=== PATIENT | female | born 1985 | race Caucasian/White ===

== ENCOUNTER 2017-10-19 06:55 | Emergency (ER) | payer OTHER, MEDICAID ==
[~2017-10-19] VITALS: Ht 167.6 cm; Wt 90.7 kg
[2017-10-19 08:14] LABS: URINE BILIRUBIN NEGATIVE (Negative); URINE BLOOD TRACE (Negative); URINE CLARITY CLEAR; URINE COLOR YELLOW; URINE GLUCOSE-RANDOM NEGATIVE (Negative); URINE KETONES NEGATIVE (Negative); URINE LEUKOCYTES-REFLEX NEGATIVE (Negative); URINE NITRITE-REFLEX NEGATIVE (Negative); URINE PROTEIN NEGATIVE (Negative); URINE SPECIFIC GRAVITY 1.025 (1.005-1.030); URINE UROBILINOGEN 0.2 E.U./dl (0.2-1.0)
[2017-10-19 08:22] LABS: AMP/METHAMP Negative (Negative); BARBITURATES Negative (Negative); BENZODIAZEPINES Negative (Negative); COCAINE Negative (Negative); METHADONE Negative (Negative); OPIATES POSITIVE (Negative); PCP Negative (Negative); THC POSITIVE (Negative)
[2017-10-19] MEDS ORDERED: PHENERGAN 25 MG25 MG PO (08:50)
[2017-10-19 08:57] VITALS: BP 114/68
== END 2017-10-19 09:03 | disposition home or self-care (01) ==
LOC: EDBD 06:55 → M.ERS 06:55
PROVIDERS: Emergency Medicine
DX: R10.9 Unspecified abdominal pain (principal); Z90.711 Acquired absence of uterus with remaining cervical stump; Z88.1 Allergy status to other antibiotic agents; Z88.8 Allergy status to other drugs, medicaments and biological substances

== ENCOUNTER 2018-06-21 07:15 | Inpatient (IN) | payer OTHER, MEDICAID ==
[~2018-06-21] VITALS: Ht 167.6 cm; Wt 133.4 kg
[~2018-06-21 07:15] MED LIST: PHENERGAN 25 MG25 MG PO
[2018-06-21] MEDS ORDERED: PROZAC20 MG PO (07:28)
[2018-06-21 07:37] LABS: URINE BILIRUBIN NEGATIVE (Negative); URINE BLOOD 1+ (Negative); URINE CLARITY CLEAR; URINE COLOR YELLOW; URINE GLUCOSE-RANDOM NEGATIVE (Negative); URINE KETONES NEGATIVE (Negative); URINE LEUKOCYTES-REFLEX NEGATIVE (Negative); URINE NITRITE-REFLEX NEGATIVE (Negative); URINE PROTEIN NEGATIVE (Negative); URINE SPECIFIC GRAVITY >= 1.030 (1.005-1.030); URINE UROBILINOGEN 0.2 E.U./dl (0.2-1.0)
[2018-06-21 07:44] LABS: BACTERIA-REFLEX 1-9 Few /HPF (None Seen); CASTS None Seen /LPF (None Seen); CRYSTALS None Seen /LPF (None Seen); MUCUS None Seen strn/LPF (None Seen); SQUAMOUS >10 Many /LPF (0-3); URINE RBC 3-10 Few /HPF (0-2); URINE WBC-REFLEX 0-5 Rare /HPF (0-5)
[2018-06-21 07:49] LABS: ABSOLUTE BASOPHILS 0.1 thou/uL (0.0-0.2); ABSOLUTE EOSINOPHILS 0.1 thou/uL (0.0-0.7); ABSOLUTE LYMPHOCYTES 2.8 thou/uL (0.8-5.3); ABSOLUTE MONOCYTES 0.6 thou/uL (0.0-1.2); ABSOLUTE NEUTROPHILS 10.1 thou/uL (1.6-8.1); BASOPHILS 0.9 %; EOSINOPHILS 0.4 %; HEMATOCRIT 41.6 % (37.0-47.0); LYMPHOCYTES 20.5 %; MCH 29.7 pg (26.0-34.0); MCHC 33.7 g/dL (28.0-37.0); MCV 88.2 fL (80.0-100.0); MONOCYTES 4.3 %; MPV 7.7 fl. (7.2-11.1); NUCLEATED RBCS 0 /100WBC; PLATELET COUNT* 396 thou/uL (150-400); POLYS 73.9 %; RBC 4.71 mil/uL (4.20-5.00); RDW-CV 13.2 % (10.5-14.5); WBC 13.7 thou/uL (4.0-11.0)
[2018-06-21 07:58] LABS: CALCIUM 8.9 mg/dL (8.5-10.1); CREATININE 0.7 mg/dL (0.6-1.3)
[2018-06-21 08:02] LABS: ALBUMIN 3.4 g/dL (3.4-5.0); POTASSIUM 4.1 mmol/L (3.5-5.1); TOTAL BILIRUBIN 0.4 mg/dL (<0.1-1.0); TOTAL PROTEIN 7.7 g/dL (6.4-8.2)
[2018-06-21] MEDS ORDERED: NORCO 5-325 TA1 EACH PO (11:42)
[2018-06-21] MEDS ORDERED: CIPROFLOXACIN500 M1 PO (11:42)
[2018-06-21] MEDS ORDERED: PHENERGAN 25 MG25 M1 PO (11:42)
[2018-06-21 14:05] VITALS: BP 111/71
[2018-06-21 15:35] LABS: AMP/METHAMP Negative (Negative); BARBITURATES Negative (Negative); BENZODIAZEPINES Negative (Negative); COCAINE Negative (Negative); METHADONE Negative (Negative); OPIATES Negative (Negative); PCP Negative (Negative); THC POSITIVE (Negative)
[2018-06-21 21:00] VITALS: BP 115/63
[2018-06-22 03:48] LABS: HEMATOCRIT 39.2 % (37.0-47.0); HEMOGLOBIN 12.9 gm/dL (12.0-15.0); MCH 29.1 pg (26.0-34.0); MCHC 32.9 g/dL (28.0-37.0); MCV 88.4 fL (80.0-100.0); RBC 4.43 mil/uL (4.20-5.00); RDW-CV 13.5 % (10.5-14.5); WBC 18.7 thou/uL (4.0-11.0)
[2018-06-22 04:05] LABS: CALCIUM 8.3 mg/dL (8.5-10.1); CREATININE 0.7 mg/dL (0.6-1.3); POTASSIUM 3.3 mmol/L (3.5-5.1)
[2018-06-22 07:45] VITALS: BP 111/61
[2018-06-22 15:43] VITALS: BP 95/42
[2018-06-22 15:45] VITALS: BP 130/93
[2018-06-22 20:10] VITALS: BP 81/47
[2018-06-23 07:47] VITALS: BP 106/67
[2018-06-23] MEDS ORDERED: PEPCID20 MG PO (10:53)
[2018-06-23] MEDS ORDERED: ZOFRAN ODT4 MG DISSOLVE (10:53)
[2018-06-23 10:58] LABS: HEMATOCRIT 35.9 % (37.0-47.0); HEMOGLOBIN 11.8 gm/dL (12.0-15.0); MCH 29.2 pg (26.0-34.0); MCHC 32.9 g/dL (28.0-37.0); MCV 88.9 fL (80.0-100.0); MPV 7.9 fl. (7.2-11.1); RBC 4.04 mil/uL (4.20-5.00); RDW-CV 13.2 % (10.5-14.5); WBC 9.8 thou/uL (4.0-11.0)
[2018-06-23 11:19] LABS: ALBUMIN 3.2 g/dL (3.4-5.0); CALCIUM 8.3 mg/dL (8.5-10.1); CREATININE 0.7 mg/dL (0.6-1.3); POTASSIUM 4.1 mmol/L (3.5-5.1); TOTAL BILIRUBIN 0.3 mg/dL (<0.1-1.0); TOTAL PROTEIN 6.2 g/dL (6.4-8.2)
[2018-06-23 13:49] VITALS: BP 106/67
== END 2018-06-23 14:05 | disposition home or self-care (01) | DRG 918 ==
LOC: M.ERS 07:15 → M.TBA-ER 12:04 → M.ORTHSURG 12:04
PROVIDERS: Personal Emergency Response Attendant; ADMIT Family Medicine
DX: T40.7X1A Poisoning by cannabis (derivatives), accidental (unintentional), initial encounter (principal); A08.4 Viral intestinal infection, unspecified; F41.9 Anxiety disorder, unspecified; F32.9 Major depressive disorder, single episode, unspecified; Z90.711 Acquired absence of uterus with remaining cervical stump; Z88.1 Allergy status to other antibiotic agents; Z88.8 Allergy status to other drugs, medicaments and biological substances; Z79.899 Other long term (current) drug therapy; Y92.89 Other specified places as the place of occurrence of the external cause

== ENCOUNTER 2018-07-23 01:13 | Emergency (ER) | payer OTHER, MEDICAID ==
[~2018-07-23] VITALS: Ht 167.6 cm; Wt 111.1 kg
[~2018-07-23 01:13] MED LIST changes: +CIPROFLOXACIN500 M1 PO; +NORCO 5-325 TA1 EACH PO; +PEPCID20 MG PO; +PHENERGAN 25 MG25 M1 PO; +PROZAC20 MG PO; +ZOFRAN ODT4 MG DISSOLVE
[2018-07-23 01:46] LABS: ABSOLUTE BASOPHILS 0.1 thou/uL (0.0-0.2); ABSOLUTE LYMPHOCYTES 2.1 thou/uL (0.8-5.3); ABSOLUTE MONOCYTES 0.6 thou/uL (0.0-1.2); ABSOLUTE NEUTROPHILS 15.1 thou/uL (1.6-8.1); BASOPHILS 0.6 %; EOSINOPHILS 0.1 %; HEMATOCRIT 41.5 % (37.0-47.0); HEMOGLOBIN 13.9 gm/dL (12.0-15.0); LYMPHOCYTES 11.9 %; MCH 29.7 pg (26.0-34.0); MCHC 33.5 g/dL (28.0-37.0); MCV 88.6 fL (80.0-100.0); MONOCYTES 3.1 %; MPV 7.8 fl. (7.2-11.1); NUCLEATED RBCS 0 /100WBC; PLATELET COUNT* 421 thou/uL (150-400); POLYS 84.3 %; RBC 4.69 mil/uL (4.20-5.00); RDW-CV 13.2 % (10.5-14.5)
[2018-07-23 01:52] LABS: CALCIUM 8.9 mg/dL (8.5-10.1); CREATININE 0.9 mg/dL (0.6-1.3); POTASSIUM 3.6 mmol/L (3.5-5.1)
[2018-07-23 01:56] LABS: ALBUMIN 3.3 g/dL (3.4-5.0); TOTAL BILIRUBIN 0.3 mg/dL (<0.1-1.0); TOTAL PROTEIN 7.4 g/dL (6.4-8.2)
[2018-07-23 02:43] LABS: URINE BILIRUBIN NEGATIVE (Negative); URINE BLOOD NEGATIVE (Negative); URINE CLARITY CLEAR; URINE COLOR YELLOW; URINE GLUCOSE-RANDOM NEGATIVE (Negative); URINE KETONES TRACE (Negative); URINE LEUKOCYTES-REFLEX NEGATIVE (Negative); URINE NITRITE-REFLEX NEGATIVE (Negative); URINE PROTEIN NEGATIVE (Negative); URINE UROBILINOGEN 0.2 E.U./dl (0.2-1.0)
[2018-07-23] MEDS ORDERED: NORCO 5-325 TA1 EACH PO (04:30)
[2018-07-23] MEDS ORDERED: PHENERGAN 25 MG25 M1 PO (04:30)
[2018-07-23 04:48] VITALS: BP 106/68
== END 2018-07-23 04:48 | disposition home or self-care (01) ==
LOC: M.ERS 01:13
PROVIDERS: Personal Emergency Response Attendant
DX: K52.9 Noninfective gastroenteritis and colitis, unspecified (principal); Z88.1 Allergy status to other antibiotic agents; Z88.8 Allergy status to other drugs, medicaments and biological substances; Z90.711 Acquired absence of uterus with remaining cervical stump

== ENCOUNTER 2018-10-27 10:20 | Emergency (ER) | payer OTHER, MEDICAID ==
[~2018-10-27] VITALS: Ht 170.2 cm; Wt 111.1 kg
[~2018-10-27 10:20] MED LIST changes: +BENTYL 20 MG TA20 M1 PO; +HYDROCODONE-AP1 EAC6 PO; +ONDANSETRON HCL4 M2 PO; +REGLAN 10 MG TA10 MG PO
[2018-10-27 10:47] LABS: URINE BILIRUBIN NEGATIVE (Negative); URINE BLOOD TRACE (Negative); URINE CLARITY CLEAR; URINE COLOR YELLOW; URINE GLUCOSE-RANDOM NEGATIVE (Negative); URINE KETONES NEGATIVE (Negative); URINE LEUKOCYTES-REFLEX NEGATIVE (Negative); URINE NITRITE-REFLEX NEGATIVE (Negative); URINE PROTEIN NEGATIVE (Negative); URINE UROBILINOGEN 0.2 E.U./dl (0.2-1.0)
[2018-10-27 10:51] LABS: ABSOLUTE BASOPHILS 0.1 thou/uL (0.0-0.2); ABSOLUTE EOSINOPHILS 0.1 thou/uL (0.0-0.7); ABSOLUTE LYMPHOCYTES 2.8 thou/uL (0.8-5.3); ABSOLUTE MONOCYTES 0.6 thou/uL (0.0-1.2); ABSOLUTE NEUTROPHILS 8.2 thou/uL (1.6-8.1); BASOPHILS 0.9 %; HEMATOCRIT 38.4 % (37.0-47.0); HEMOGLOBIN 12.9 gm/dL (12.0-15.0); MCH 29.5 pg (26.0-34.0); MCHC 33.6 g/dL (28.0-37.0); MCV 87.8 fL (80.0-100.0); MPV 7.8 fl. (7.2-11.1); NUCLEATED RBCS 0 /100WBC; PLATELET COUNT* 378 thou/uL (150-400); POLYS 69.1 %; RBC 4.37 mil/uL (4.20-5.00); RDW-CV 13.5 % (10.5-14.5); WBC 11.8 thou/uL (4.0-11.0)
[2018-10-27 11:02] LABS: ALBUMIN 3.2 g/dL (3.4-5.0); CALCIUM 8.6 mg/dL (8.5-10.1); CREATININE 0.9 mg/dL (0.6-1.3); POTASSIUM 3.8 mmol/L (3.5-5.1); TOTAL BILIRUBIN 0.1 mg/dL (<0.1-1.0); TOTAL PROTEIN 6.9 g/dL (6.4-8.2)
[2018-10-27] MEDS ORDERED: FLAGYL500 M1 PO (11:49)
[2018-10-27] MEDS ORDERED: ZOFRAN ODT4 MG PO (11:49)
[2018-10-27] MEDS ORDERED: CIPRO500 MG PO (11:49)
[2018-10-27] MEDS ORDERED: NORCO 5-325 TA1 EACH PO (11:49)
[2018-10-27 11:59] VITALS: BP 131/74
== END 2018-10-27 11:59 | disposition home or self-care (01) ==
LOC: M.ERS 10:20
PROVIDERS: Physician Assistant
DX: R10.32 Left lower quadrant pain (principal); R10.33 Periumbilical pain; R11.2 Nausea with vomiting, unspecified; R19.7 Diarrhea, unspecified; Z90.710 Acquired absence of both cervix and uterus; Z88.1 Allergy status to other antibiotic agents; Z88.8 Allergy status to other drugs, medicaments and biological substances

== ENCOUNTER 2018-11-04 14:43 | Emergency (ER) | payer OTHER, MEDICAID ==
[~2018-11-04] VITALS: Ht 160 cm; Wt 90.7 kg
[~2018-11-04 14:43] MED LIST changes: +CIPRO500 MG PO; +FLAGYL500 M1 PO; +ZOFRAN ODT4 MG PO; +ZOFRAN ODT4 MG SUBLING
[2018-11-04 15:08] LABS: HEMATOCRIT 42.5 % (37.0-47.0); MCH 28.9 pg (26.0-34.0); MCHC 32.9 g/dL (28.0-37.0); MCV 87.9 fL (80.0-100.0); NUCLEATED RBCS 0 /100WBC; PLATELET COUNT* 452 thou/uL (150-400); RBC 4.83 mil/uL (4.20-5.00); RDW-CV 13.6 % (10.5-14.5); WBC 20.3 thou/uL (4.0-11.0)
[2018-11-04 15:21] LABS: ALBUMIN 3.6 g/dL (3.4-5.0); CALCIUM 9.3 mg/dL (8.5-10.1); CREATININE 0.9 mg/dL (0.6-1.3); POTASSIUM 3.7 mmol/L (3.5-5.1); TOTAL BILIRUBIN 0.2 mg/dL (<0.1-1.0); TOTAL PROTEIN 7.8 g/dL (6.4-8.2)
[2018-11-04 16:28] VITALS: BP 120/61
[2018-11-04 16:39] LABS: ABSOLUTE LYMPHOCYTES 1.2 thou/uL (0.8-5.3); ABSOLUTE MONOCYTES 0.2 thou/uL (0.0-1.2); ABSOLUTE NEUTROPHILS 18.9 thou/uL (1.6-8.1); PLATELET ESTIMATE INCREASED
== END 2018-11-04 16:28 | disposition home or self-care (01) ==
LOC: M.ERS 14:43
PROVIDERS: Family Medicine
DX: G43.A0 Cyclical vomiting, in migraine, not intractable (principal); R19.7 Diarrhea, unspecified; Z88.1 Allergy status to other antibiotic agents; Z88.8 Allergy status to other drugs, medicaments and biological substances; Z90.711 Acquired absence of uterus with remaining cervical stump

== ENCOUNTER 2018-11-06 01:27 | Emergency (ER) | payer OTHER, MEDICAID ==
[~2018-11-06] VITALS: Ht 167.6 cm; Wt 113.4 kg
[2018-11-06 02:08] LABS: ABSOLUTE BASOPHILS 0.2 thou/uL (0.0-0.2); ABSOLUTE EOSINOPHILS 0.1 thou/uL (0.0-0.7); ABSOLUTE LYMPHOCYTES 4.4 thou/uL (0.8-5.3); ABSOLUTE MONOCYTES 0.9 thou/uL (0.0-1.2); ABSOLUTE NEUTROPHILS 10.2 thou/uL (1.6-8.1); BASOPHILS 1.1 %; EOSINOPHILS 0.4 %; HEMATOCRIT 38.2 % (37.0-47.0); HEMOGLOBIN 12.6 gm/dL (12.0-15.0); MCHC 32.9 g/dL (28.0-37.0); MCV 88.3 fL (80.0-100.0); MONOCYTES 5.8 %; MPV 7.8 fl. (7.2-11.1); NUCLEATED RBCS 0 /100WBC; PLATELET COUNT* 396 thou/uL (150-400); POLYS 64.7 %; RBC 4.32 mil/uL (4.20-5.00); WBC 15.8 thou/uL (4.0-11.0)
[2018-11-06 02:23] LABS: ALBUMIN 3.2 g/dL (3.4-5.0); CALCIUM 8.6 mg/dL (8.5-10.1); CREATININE 0.8 mg/dL (0.6-1.3); POTASSIUM 3.3 mmol/L (3.5-5.1); TOTAL BILIRUBIN 0.2 mg/dL (<0.1-1.0); TOTAL PROTEIN 6.7 g/dL (6.4-8.2)
[2018-11-06] MEDS ORDERED: PHENERGAN 25 MG25 M1 PO (03:11)
[2018-11-06] MEDS ORDERED: BENTYL 10 MG CA10 M1 PO (03:11)
[2018-11-06 03:59] VITALS: BP 148/82
== END 2018-11-06 04:00 | disposition home or self-care (01) ==
LOC: M.ERS 01:27
PROVIDERS: Emergency Medicine
DX: R11.2 Nausea with vomiting, unspecified (principal); R10.84 Generalized abdominal pain; Z90.710 Acquired absence of both cervix and uterus; Z88.1 Allergy status to other antibiotic agents; Z88.8 Allergy status to other drugs, medicaments and biological substances

== ENCOUNTER → 2019-01-09 | Outpatient (CLI) | payer OTHER, MEDICAID ==
[~2019-01-09] MED LIST changes: +BENTYL 10 MG CA10 M1 PO
== END ==
LOC: M.ULTRA 16:00
DX: M79.9 Soft tissue disorder, unspecified (principal)

== ENCOUNTER 2019-02-13 08:20 | Emergency (ER) | payer OTHER, MEDICAID ==
[~2019-02-13] VITALS: Ht 167.6 cm; Wt 111.1 kg
[2019-02-13] MEDS ORDERED: PROZAC20 MG PO (08:29)
[2019-02-13 09:09] LABS: ABSOLUTE BASOPHILS 0.1 thou/uL (0.0-0.2); ABSOLUTE EOSINOPHILS 0.1 thou/uL (0.0-0.7); ABSOLUTE LYMPHOCYTES 2.5 thou/uL (0.8-5.3); ABSOLUTE MONOCYTES 0.5 thou/uL (0.0-1.2); ABSOLUTE NEUTROPHILS 10.9 thou/uL (1.6-8.1); BASOPHILS 0.9 %; EOSINOPHILS 0.4 %; HEMATOCRIT 39.6 % (37.0-47.0); HEMOGLOBIN 13.6 gm/dL (12.0-15.0); LYMPHOCYTES 18.1 %; MCH 30.1 pg (26.0-34.0); MCHC 34.3 g/dL (28.0-37.0); MCV 87.7 fL (80.0-100.0); MONOCYTES 3.4 %; MPV 8.1 fl. (7.2-11.1); NUCLEATED RBCS 0 /100WBC; PLATELET COUNT* 389 thou/uL (150-400); POLYS 77.2 %; RBC 4.52 mil/uL (4.20-5.00); RDW-CV 13.2 % (10.5-14.5); WBC 14.1 thou/uL (4.0-11.0)
[2019-02-13 09:27] LABS: ALBUMIN 3.4 g/dL (3.4-5.0); CALCIUM 8.6 mg/dL (8.5-10.1); CREATININE 0.8 mg/dL (0.6-1.3); POTASSIUM 3.4 mmol/L (3.5-5.1); TOTAL BILIRUBIN 0.3 mg/dL (<0.1-1.0); TOTAL PROTEIN 7.3 g/dL (6.4-8.2)
[2019-02-13 09:53] VITALS: BP 133/76
[2019-02-14] MEDS ORDERED: ZOFRAN ODT4 MG DISSOLVE (00:21)
[2019-02-14] MEDS ORDERED: AUGMENTIN 875-1 EACH PO (00:21)
[2019-02-14] MEDS ORDERED: BENTYL 20 MG TA20 M1 PO (08:12)
== END 2019-02-13 09:53 | disposition home or self-care (01) ==
LOC: M.ERS 08:20
PROVIDERS: Family Medicine
DX: G43.A0 Cyclical vomiting, in migraine, not intractable (principal); R19.7 Diarrhea, unspecified; R10.84 Generalized abdominal pain; Z98.51 Tubal ligation status; Z90.711 Acquired absence of uterus with remaining cervical stump; Z88.1 Allergy status to other antibiotic agents; Z88.8 Allergy status to other drugs, medicaments and biological substances

== ENCOUNTER 2019-02-13 22:27 | Emergency (ER) | payer OTHER, MEDICAID ==
[~2019-02-13] VITALS: Ht 167.6 cm; Wt 113.4 kg
[2019-02-13 22:56] LABS: HEMATOCRIT 39.7 % (37.0-47.0); HEMOGLOBIN 13.1 gm/dL (12.0-15.0); MCH 28.8 pg (26.0-34.0); MCHC 32.9 g/dL (28.0-37.0); MCV 87.6 fL (80.0-100.0); MPV 7.9 fl. (7.2-11.1); NUCLEATED RBCS 0 /100WBC; PLATELET COUNT* 446 thou/uL (150-400); RBC 4.54 mil/uL (4.20-5.00); RDW-CV 13.4 % (10.5-14.5); WBC 20.2 thou/uL (4.0-11.0)
[2019-02-13 23:00] LABS: URINE BILIRUBIN NEGATIVE (Negative); URINE BLOOD 3+ (Negative); URINE CLARITY CLEAR; URINE COLOR YELLOW; URINE GLUCOSE-RANDOM NEGATIVE (Negative); URINE KETONES NEGATIVE (Negative); URINE LEUKOCYTES-REFLEX NEGATIVE (Negative); URINE NITRITE-REFLEX NEGATIVE (Negative); URINE PROTEIN NEGATIVE (Negative); URINE SPECIFIC GRAVITY 1.025 (1.005-1.030); URINE UROBILINOGEN 0.2 E.U./dl (0.2-1.0)
[2019-02-13 23:05] LABS: CALCIUM 8.7 mg/dL (8.5-10.1); CREATININE 0.7 mg/dL (0.6-1.3); POTASSIUM 3.6 mmol/L (3.5-5.1)
[2019-02-13 23:10] LABS: ALBUMIN 3.4 g/dL (3.4-5.0); TOTAL BILIRUBIN 0.3 mg/dL (<0.1-1.0); TOTAL PROTEIN 7.2 g/dL (6.4-8.2)
[2019-02-13 23:15] LABS: ABSOLUTE LYMPHOCYTES 2.2 thou/uL (0.8-5.3); ABSOLUTE MONOCYTES 0.6 thou/uL (0.0-1.2); ABSOLUTE NEUTROPHILS 17.4 thou/uL (1.6-8.1); PLATELET ESTIMATE ADEQUATE
[2019-02-13 23:17] LABS: BACTERIA-REFLEX 1-9 Few /HPF (None Seen); CASTS None Seen /LPF (None Seen); CRYSTALS None Seen /LPF (None Seen); SQUAMOUS >10 Many /LPF (0-3); URINE RBC 3-10 Few /HPF (0-2); URINE WBC-REFLEX 0-5 Rare /HPF (0-5)
[2019-02-13 23:29] LABS: AMP/METHAMP Negative (Negative); BARBITURATES Negative (Negative); BENZODIAZEPINES Negative (Negative); COCAINE Negative (Negative); METHADONE Negative (Negative); OPIATES Negative (Negative); PCP Negative (Negative); THC POSITIVE (Negative)
[2019-02-14] MEDS ORDERED: AUGMENTIN 875-1 EACH PO (00:21)
[2019-02-14] MEDS ORDERED: ZOFRAN ODT4 MG DISSOLVE (00:21)
[2019-02-14 00:50] VITALS: BP 118/80
[2019-02-14] MEDS ORDERED: BENTYL 20 MG TA20 M1 PO (08:12)
== END 2019-02-14 00:51 | disposition home or self-care (01) ==
LOC: M.ERS 22:27
PROVIDERS: Emergency Medicine Emergency Medical Services
DX: K52.9 Noninfective gastroenteritis and colitis, unspecified (principal); F12.188 Cannabis abuse with other cannabis-induced disorder; Z88.8 Allergy status to other drugs, medicaments and biological substances; Z88.1 Allergy status to other antibiotic agents; Z98.890 Other specified postprocedural states; Z90.711 Acquired absence of uterus with remaining cervical stump

== ENCOUNTER 2019-02-14 03:52 | Observation (INO) | payer OTHER, MEDICAID | END 2019-02-15 08:30 | disposition home or self-care (01) | LOC: M.ERS 03:52 → M.TBA-ER 04:17 → M.ORTHSURG 05:54 | PROVIDERS: ADMIT Internal Medicine | DX: K31.89 Other diseases of stomach and duodenum (principal); F12.10 Cannabis abuse, uncomplicated; K52.9 Noninfective gastroenteritis and colitis, unspecified; S39.011A Strain of muscle, fascia and tendon of abdomen, initial encounter; E86.9 Volume depletion, unspecified; K76.89 Other specified diseases of liver; D73.4 Cyst of spleen; Z79.899 Other long term (current) drug therapy; X58.XXXA Exposure to other specified factors, initial encounter; Y93.89 Activity, other specified; Y92.89 Other specified places as the place of occurrence of the external cause ==

== ENCOUNTER → 2019-12-10 | Outpatient (CLI) | payer OTHER ==
[~2019-12-10] MED LIST changes: +AUGMENTIN 875-1 EACH PO
== END ==
LOC: M.ULTRA 11-27 14:30
DX: M79.89 Other specified soft tissue disorders (principal)